=== PATIENT | female | born 1995 | race African-American/Black ===

== ENCOUNTER 2019-01-15 14:21 | Emergency (ER) | payer OTHER ==
[~2019-01-15] VITALS: Ht 172.7 cm; Wt 52.7 kg
[2019-01-15 14:33] VITALS: BP 120/69; PULSE 83; RESP 20; Ht 172.7 cm; Wt 52.7 kg
--- NOTE | 2019-01-15 14:54 | ERD ---
ER Documentation Chief Complaint Chief Complaint s/p hit head on a cabinet this AM. Feeling dizzy. Denies nausea HPI This patient is a 23-year-old female who this morning fell forward and hit her left upper forehead against a cabinet. She did not lose consciousness and has not had any vomiting. Initially she felt fine but about 2 hours later began developing pain at the site as well as dizziness. No blood thinning medications. She is ambulatory ROS All systems reviewed and are negative except as per history of present illness. FmHx Family History: No diabetes Physical Exam Vitals Vital Signs Date Temp Pulse Resp B/P (MAP) Pulse Ox O2 O2 Flow FiO2 Time Delivery Rate 01/15/19 98.1 83 20 120/69 100 14:33 (86) Physical Exam INITIAL VITAL SIGNS: Reviewed by me GENERAL: Awake, alert and oriented x 4, well appearing, nontoxic, speaking in full sentences. No acute distress HEAD: Atraumatic NECK: Supple. No masses. Full range of motion. No meningismus. No midline tenderness. EYES: EOMI. PERRL. EAR: No tenderness over the mastoids bilaterally. No exudates in the canals. TMs nonerythematous. NOSE: Normal nose. THROAT: No tonilar erythema or edema. No exudates. Uvula midline. No kissing tonsils. RESPIRATORY: Clear to auscultation bilaterally. Symmetric chest wall rise. No wheezing or rales. No accessory muscle use. CV: Regular rate and rhythm. No murmurs, rubs, or gallops. Neuro: M/S: Alert and oriented Face: EOMI, face and pharynx with normal sensation and function Motor: Normal strength throughout Sensation: Normal sensation throughout Speech: Normal Cerebel: Normal coordination Normal gait, able to stand on toes Normal finger to nose Procedures/MDM Patient has suffered from minor blunt head trauma that occurred on the following data and time: 10 AM this morning The patient has a GCS of [address] was not performed based on the 2008 [employer] Clinical Policy on Adult Head Trauma. Risks and benefits of CT scan explained to the patient and informed decision was made to not CT scan at this time. I explained to the patient that she likely had a concussion. Return precautions given to patient and patient will return for any new or worsening symptoms. Patient counseled regarding my diagnostic impression and care plan. Prior to discharge all questions answered. Pt agrees with treatment plan and understands strict return precautions. Pt is instructed to follow up with primary care provider within 24-48 hours. Precautionary instructions provided including instructions to return to the ER if not improving or for any worsening or changing symptoms or concerns. Departure Diagnosis: Primary Impression: Acute head injury Additional Impression: Concussion Condition: Stable Patient Instructions: Concussion in adults Additional Instructions: Call your primary care doctor TOMORROW for an appointment during the next 1-2 days.See the doctor sooner or return here if your condition worsens before your appointment time. NALLELY ROSAS PA-C Jan 15, 2019 14:54
== END 2019-01-15 15:22 | disposition home or self-care (01) ==
LOC: FTE 14:21
DX: S06.0X0A Concussion without loss of consciousness, initial encounter (principal); R40.2412 Glasgow coma scale score 13-15, at arrival to emergency department; W22.8XXA Striking against or struck by other objects, initial encounter; Y92.9 Unspecified place or not applicable
CPT/HCPCS: 99282